=== PATIENT | female | born 1940 | race American Indian/Alaskan Native ===

== ENCOUNTER 2021-01-30 11:04 | Outpatient (CLI) | payer OTHER ==
--- NOTE | 2021-01-30 13:20 | XRay Report ---
RIGHT HAND 3 VIEW(S) INDICATION / CLINICAL INFORMATION: M25.531 RT WRIST PAIN W19.XXXA COMPARISON: None available. FINDINGS: BONES / JOINT(S): No acute fracture or subluxation. Mild deformity of the proximal little finger meta carpal may represent a chronic fracture. There is mild widening of the scapholunate interval, which c ould indicate a scapholunate ligament injury. 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 There is chondrocalcinosis of the triangular fibrocartilage. SOFT TISSUES: No significant abnormality. ADDITIONAL FINDINGS: None. Signer Name: Gonzalez Alamo MD Signed: 01/30/2021 1:15 PM Workstation Name: [id number]
== END 2021-01-30 11:05 | disposition home or self-care (01) ==
LOC: XRAY 11:04
PROVIDERS: ATTEND Family Medicine
DX: M19.041 Primary osteoarthritis, right hand (principal); M11.241 Other chondrocalcinosis, right hand